=== PATIENT | female | born 1970 | race Caucasian/White ===

== ENCOUNTER → 2020-01-14 11:13 | Outpatient (CLI) | payer BC, SELFPAY ==
--- NOTE | ~2020-01-14 | US_ITS ---
EXAMINATION: US thyroid DATE: 01/14/2020 11:31 INDICATION: Thyroid nodule. Nontoxic goiter. TECHNIQUE: Multiple ultrasound images of the thyroid were obtained. COMPARISON: Ultrasound 01/11/2019 FINDINGS: The right thyroid lobe measures 5.0 x 1.5 x 1.7 cm. The left thyroid lobe measures 4.0 x 1.5 x 1.5 c m. In the right thyroid lobe, there is a 1.1 cm solid, hypoechoic, [id number] nodule with lobul ated margin without echogenic foci (TI-RADS TR4). In the right thyroid lobe, there is a 5 mm solid, h ypoechoic, lvppl-lege-nzvi nodule with smooth margin without echogenic foci (TR4). In the left thyroi d lobe, there is a 1.3 cm solid, hypoechoic, otdch-murt-moyo nodule with lobulated margin without ech ogenic foci (TR4). IMPRESSION: 1. Stable thyroid nodules. Thyroid ultrasound is recommended in one year. Reviewed, dictated and finalized at location A.
== END ==
PROVIDERS: Visit Provider Family Medicine
DX: E04.9 Nontoxic goiter, unspecified (principal)
CPT/HCPCS: 76536

== ENCOUNTER → 2022-08-19 15:42 | Outpatient (CLI) | payer BC, SELFPAY ==
--- NOTE | ~2022-08-19 | US_ITS ---
EXAMINATION: US thyroid DATE: 08/19/2022 16:02 INDICATION: Nontoxic single thyroid nodule. TECHNIQUE: Multiple ultrasound images of the thyroid were obtained. COMPARISON: Ultrasound 01/14/2020, 01/11/2019 FINDINGS: The right thyroid lobe measures 4.2 x 1.8 x 1.5 cm. The left thyroid lobe measures 4.4 x 1.6 x 1.4 c m. In the right thyroid lobe, there is a 6 mm solid, hypoechoic, wider than tall nodule with smooth margin without echogenic foci (TI-RADS TR4). In the right thyroid lobe, there is a 9 mm solid, hypoec hoic, wider than tall nodule with ill-defined margin without echogenic foci (TR4). In the left thyroi d lobe, there is an 11 mm solid, hypoechoic, wider than tall nodule with ill-defined margin without e chogenic foci (TR4). IMPRESSION: 1. Multinodular goiter, stable from 01/11/2019. Thyroid ultrasound is recommended in 2 years. Reviewed, dictated and finalized at location B. IMPRESSION: 1. Multinodular goiter, stable from 01/11/2019. Thyroid ultrasound is recommende d in 2 years.
== END ==
PROVIDERS: PCP Family Medicine; Visit Provider Nurse Practitioner Family
DX: E04.2 Nontoxic multinodular goiter (principal)
CPT/HCPCS: 76536

== ENCOUNTER 2024-10-04 08:49 | Outpatient (CLI) | payer BC, SELFPAY ==
--- NOTE | ~2024-10-04 | US_ITS ---
EXAMINATION: US thyroid DATE: 10/04/2024 09:15 INDICATION: Thyroid nodule. TECHNIQUE: Multiple ultrasound images of the thyroid were obtained. COMPARISON: Ultrasound 08/19/2022, 01/11/2019 FINDINGS: The right thyroid lobe measures 5.6 x 1.5 x 2.1 cm. The left thyroid lobe measures 4.5 x 1.4 x 1.4 c m. In the left thyroid lobe, there is a 1.3 cm solid, very hypoechoic, wider than tall nodule with i ll-defined margin without echogenic foci (TI-RADS TR4). In the right thyroid lobe, there is a 10 mm s olid, hypoechoic, wider than tall nodule with smooth margin without echogenic foci (TR4). In the righ t thyroid lobe, there is a 4 mm nodule. IMPRESSION: 1. Thyroid nodules, stable from 01/11/19, likely benign. Reviewed, dictated and finalized at location A. RGLASS [employer]INATOR
== END 2024-10-04 08:50 | disposition home or self-care (01) ==
LOC: MICIMG 08:50
PROVIDERS: PCP Family Medicine; Visit Provider Student in an Organized Health Care Education/Training Program
DX: E04.2 Nontoxic multinodular goiter (principal)
CPT/HCPCS: 76536